=== PATIENT | female | born 1970 | race Caucasian/White ===

== ENCOUNTER 2017-08-16 19:47 | Emergency (ER) | payer SELFPAY ==
[2017-08-16 20:23] LABS: Pregnancy Test - Urine (BHCG) Negative (Negative); Pregu Control Background? CLEAR/WHITE (CLR/WHITE); Pregu Control Bar Appear? YES (CONTROL BAR); Specific Gravity 1.014 (1.002-1.036)
[2017-08-16 20:30] LABS: Amphetamine Not Detected (NotDetected); Cocaine Metabolite Screen Not Detected (NotDetected); Methamphetamine Not Detected (NotDetected); Opiate Screen Not Detected (NotDetected); Phencyclidine (PCP) Not Detected (NotDetected); THC/Cannabinoid Screen Not Detected (NotDetected)
[2017-08-16 20:31] LABS: Barbiturates Screen Not Detected (NotDetected); Benzodiazepine Screen Detected (NotDetected); Medtox Control Line Valid? VALID (VALID); Methadone Not Detected (NotDetected); Oxycodone Screen Not Detected (NotDetected); Tricyclic Screen Not Detected (NotDetected)
[2017-08-16 20:38] LABS: #Basophils 0.2 thou/uL (0.0-0.2); #Eosinphils 0.2 thou/uL (0.0-0.7); #Lymphocytes 3.3 thou/uL (1.20-3.40); #Monocytes 0.9 thou/uL (0.11-0.59); #Neutrophils 6.5 thou/uL (1.40-6.50); %Basophils 1.7 % (0.0-1.0); %Eosinophils 2.2 % (0.0-10.0); %Lymphocytes 29.4 % (21.0-51.0); %Monocytes 8.3 % (0.0-10.0); %Neutrophils 58.5 % (42.0-75.0); Hemoglobin 16.1 g/dL (12.0-16.0); Mean Corpuscular HGB CONC 34.9 g/dL (32.0-36.0); Mean Corpuscular Hemoglobin 30.8 pg (27.0-31.0); Mean Corpuscular Volume 88.4 fl (81.0-99.0); Mean Platelet Volume 6.9 fL (7.4-10.4); Platelet Count 353 thou/uL (130-400); RBC Distribution Width 12.6 % (11.5-14.5); Red Blood Cell (RBC) Count 5.23 mill/uL (4.20-5.40); White Blood Cell (WBC) Count 11.1 thou/uL (4.8-10.8)
[2017-08-16 20:59] LABS: ALT (SGPT) 12 U/L (8-55); AST (SGOT) 22 U/L (5-34); Albumin 4.5 g/dL (3.5-5.0); Alkaline Phosphatase 84 U/L (40-150); Anion Gap 18 mmol/L (10-20); BUN (Urea Nitrogen) 14 mg/dL (7.0-18.7); Bilirubin, Total 0.2 mg/dL (0.2-1.2); Calc. Creatinine Clearance 0 mL/min (70-130); Calcium 9.7 mg/dL (7.8-10.44); Carbon Dioxide 25 mmol/L (22-29); Chloride 102 mmol/L (98-107); Estimated GFR-MDRD 61; Globulin 3.6 g/dL (2.4-3.5); Glucose 76 mg/dL (70-105); Magnesium 2.1 mg/dL (1.6-2.6); Protein, Total 8.1 g/dL (6.0-8.3); Sodium 141 mmol/L (136-145)
--- NOTE | 2017-08-16 21:33 | CT ---
CT OF THE BRAIN WITHOUT CONTRAST 08/16/17 COMPARISON: None. HISTORY: Passed out this morning; syncope. TECHNIQUE: Multiple contiguous axial images were obtained in a CT of the brain without contrast. FINDINGS: The brain is normal in morphology and attenuation without focal lesions or confluent areas of infarct ion. There is no evidence of hydrocephalus, intracranial hemorrhage or extra-axial fluid collection. The calvarium and overlying soft tissues are unremarkable. The visualized paranasal sinuses and masto id air cells are well aerated. IMPRESSION: No evidence of acute intracranial abnormality. POS: [facility]
== END 2017-08-16 21:58 | disposition home or self-care (01) ==
LOC: MADERS 19:47
DX: F41.9 Anxiety disorder, unspecified (principal); M62.838 Other muscle spasm; F17.210 Nicotine dependence, cigarettes, uncomplicated
CPT/HCPCS: 70450; 80053; 80306; 81025; 83735; 84443; 85025; 93005

== ENCOUNTER 2018-08-12 17:50 | Emergency (ER) | payer OTHER, SELFPAY ==
[2018-08-12] MEDS ORDERED: Lorazepam 2 MG/ML VIAL ONE (18:06)
== END 2018-08-12 19:00 | disposition home or self-care (01) ==
LOC: MADERS 17:50
DX: F41.1 Generalized anxiety disorder (principal); F17.210 Nicotine dependence, cigarettes, uncomplicated; Z79.899 Other long term (current) drug therapy
CPT/HCPCS: 96372; J2060

== ENCOUNTER 2018-09-29 08:59 | Emergency (ER) | payer BC, SELFPAY ==
[2018-09-29] MEDS ORDERED: Ibuprofen 600 MG TAB ONE (09:38)
--- NOTE | 2018-09-29 10:16 | RAD ---
4 VIEWS RIGHT WRIST: Date: 09/29/18 COMPARISON: None. HISTORY: Right wrist pain after fall. FINDINGS: 4 views of the right wrist show no evidence of acute fracture or dislocation. Mild soft tissue swelli ng is seen. No degenerative changes are present. IMPRESSION: No evidence of acute osseous abnormality. POS: [facility]
== END 2018-09-29 10:15 | disposition home or self-care (01) ==
LOC: MADERS 08:59
DX: M25.531 Pain in right wrist (principal); F41.9 Anxiety disorder, unspecified; F17.210 Nicotine dependence, cigarettes, uncomplicated; Z79.899 Other long term (current) drug therapy

== ENCOUNTER 2018-10-20 13:20 | Outpatient (CLI) | payer BC ==
--- NOTE | 2018-10-20 13:51 | RAD ---
3 views right hand: 10/20/2018 COMPARISON: None HISTORY: Fall, swelling FINDINGS: No fracture or dislocation. No radiopaque foreign body or subcutaneous gas. IMPRESSION: No acute findings.
--- NOTE | 2018-10-20 13:53 | RAD ---
4 views right wrist: 10/20/2018 COMPARISON: 09/29/2018 HISTORY: Fall, swelling FINDINGS: No displaced fracture or evidence of dislocation is noted. There is mild radiocarpal joint space narrowing. IMPRESSION: No displaced fracture or evidence of dislocation. If symptoms persist, MRI may be benefic ial.
== END 2018-10-20 13:21 | disposition home or self-care (01) ==
LOC: MADRAD 13:20
PROVIDERS: ATTEND Family Medicine
DX: S60.221D Contusion of right hand, subsequent encounter (principal); S60.211D Contusion of right wrist, subsequent encounter

== ENCOUNTER 2019-03-13 19:15 | Emergency (ER) | payer BC ==
[2019-03-13] MEDS ORDERED: Adacel (T-DAP) 0.5 ML SYRINGE ONE (19:30)
[2019-03-13] MEDS ORDERED: Cipro 250 MG TAB ONE (19:39)
[2019-03-13] MEDS ORDERED: HYDROcodone/Acetaminophen 10/325 mg Tablet ONE (19:42)
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
== END 2019-03-13 20:25 | disposition home or self-care (01) ==
LOC: MADERS 19:15
DX: S91.331A Puncture wound without foreign body, right foot, initial encounter (principal); F41.9 Anxiety disorder, unspecified; F17.210 Nicotine dependence, cigarettes, uncomplicated; W45.0XXA Nail entering through skin, initial encounter; Z23 Encounter for immunization
CPT/HCPCS: 90471; 90715

== ENCOUNTER 2019-06-21 15:59 | Emergency (ER) | payer BC, SELFPAY | END 2019-06-21 16:25 | disposition home or self-care (01) | LOC: MADERS 15:59 | DX: F41.1 Generalized anxiety disorder (principal); F43.0 Acute stress reaction; F41.9 Anxiety disorder, unspecified; F17.210 Nicotine dependence, cigarettes, uncomplicated; Z79.899 Other long term (current) drug therapy | CPT/HCPCS: 99283 ==

== ENCOUNTER 2019-06-23 03:24 | Emergency (ER) | payer SELFPAY ==
[2019-06-23 04:03] LABS: #Basophils 0.1 thou/uL (0.0-0.2); #Eosinphils 0.2 thou/uL (0.0-0.7); #Lymphocytes 2.5 thou/uL (1.20-3.40); #Monocytes 0.6 thou/uL (0.11-0.59); #Neutrophils 5.2 thou/uL (1.40-6.50); %Basophils 1.3 % (0.0-1.0); %Eosinophils 2.1 % (0.0-10.0); %Lymphocytes 29.2 % (21.0-51.0); %Monocytes 6.6 % (0.0-10.0); %Neutrophils 60.9 % (42.0-75.0); Hemoglobin 14.8 g/dL (12.0-16.0); Mean Corpuscular HGB CONC 32.1 g/dL (32.0-36.0); Mean Corpuscular Hemoglobin 30.9 pg (27.0-31.0); Mean Corpuscular Volume 96.1 fL (78.0-98.0); Mean Platelet Volume 6.9 fL (7.4-10.4); Platelet Count 324 thou/uL (130-400); RBC Distribution Width 15.2 % (11.5-14.5); White Blood Cell (WBC) Count 8.5 thou/uL (4.8-10.8)
[2019-06-23 04:17] LABS: ALT (SGPT) 15 U/L (8-55); AST (SGOT) 20 U/L (5-34); Acetaminophen Less than 6.0 mcg/mL (10.0-30.0); Albumin 4.6 g/dL (3.5-5.0); Alcohol 102 mg/dL (Less than 10); Alkaline Phosphatase 66 U/L (40-110); Anion Gap 14 mmol/L (10-20); BUN (Urea Nitrogen) 7 mg/dL (7.0-18.7); Bilirubin, Total 0.2 mg/dL (0.2-1.2); Calc. Creatinine Clearance 0 mL/min (70-130); Calcium 9.3 mg/dL (7.8-10.44); Carbon Dioxide 28 mmol/L (22-29); Chloride 104 mmol/L (98-107); Estimated GFR-MDRD 81; Globulin 3.4 g/dL (2.4-3.5); Glucose 88 mg/dL (70-105); Potassium 3.4 mmol/L (3.5-5.1); Salicylate Less than 8.0 mg/dL (15.0-30.0); Sodium 143 mmol/L (136-145)
[2019-06-23] MEDS ORDERED: ALPRAZolam 0.5 MG TAB ONE (06:01)
[2019-06-23 06:12] LABS: Amphetamine Not Detected (NotDetected); Barbiturates Screen Not Detected (NotDetected); Benzodiazepine Screen Detected (NotDetected); Cocaine Metabolite Screen Not Detected (NotDetected); Medtox Control Line Valid? VALID (VALID); Methadone Not Detected (NotDetected); Methamphetamine Not Detected (NotDetected); Opiate Screen Not Detected (NotDetected); Oxycodone Screen Not Detected (NotDetected); Phencyclidine (PCP) Not Detected (NotDetected); THC/Cannabinoid Screen Not Detected (NotDetected); Tricyclic Screen Not Detected (NotDetected)
== END 2019-06-23 12:30 | disposition home or self-care (01) ==
LOC: MADERS 03:24
DX: S20.212A Contusion of left front wall of thorax, initial encounter (principal); F32.9 Major depressive disorder, single episode, unspecified; F10.129 Alcohol abuse with intoxication, unspecified; F41.9 Anxiety disorder, unspecified; I10 Essential (primary) hypertension; F17.210 Nicotine dependence, cigarettes, uncomplicated; Z79.899 Other long term (current) drug therapy; Y04.0XXA Assault by unarmed brawl or fight, initial encounter
CPT/HCPCS: 80053; 80306; 80307; 84443; 85025; 99285

== ENCOUNTER 2020-05-29 10:53 | Emergency (ER) | payer SELFPAY | END 2020-05-29 12:04 | disposition home or self-care (01) | LOC: MADERS 10:53 | DX: S63.502A Unspecified sprain of left wrist, initial encounter (principal); F17.210 Nicotine dependence, cigarettes, uncomplicated; W01.0XXA Fall on same level from slipping, tripping and stumbling without subsequent striking against object, initial encounter ==

== ENCOUNTER 2020-06-19 17:11 | Emergency (ER) | payer SELFPAY | END 2020-06-19 17:47 | disposition home or self-care (01) | LOC: MADERS 17:11 | DX: R22.31 Localized swelling, mass and lump, right upper limb (principal); F17.210 Nicotine dependence, cigarettes, uncomplicated | CPT/HCPCS: 99282 ==

== ENCOUNTER 2020-10-23 12:35 | Emergency (ER) | payer SELFPAY ==
[2020-10-23] MEDS ORDERED: Acetaminophen 325 MG TAB ONE (13:33)
[2020-10-23 13:39] LABS: Bilirubin Small (Negative); Blood, Urine Large (Negative); Clarity Clear (Clear); Glucose, Urine (Dipstick) Negative (Negative); Ketone, Urine Negative (Negative); Leukocyte Negative (Negative); Nitrite Negative (Negative); Protein, Urine (Dipstick) 30 mg/dL (Neg-Trace)
[2020-10-23 13:41] LABS: Specific Gravity, Urine 1.021 (1.002-1.036)
[2020-10-23 13:59] LABS: Bacteria/HPF Rare-Few HPF (None Seen); Squamous Epithelial 0-3 HPF (0-3); WBC/HPF 0-3 HPF (0-3)
[2020-10-24 12:09] LABS: SARS-CoV-2 PCR by NAA Not Detected (NotDetected)
== END 2020-10-23 14:33 | disposition home or self-care (01) ==
LOC: MADERS 12:35
DX: R51.9 Headache, unspecified (principal); R11.0 Nausea; R43.8 Other disturbances of smell and taste; Z20.822 Contact with and (suspected) exposure to COVID-19; F17.210 Nicotine dependence, cigarettes, uncomplicated; Z79.899 Other long term (current) drug therapy
CPT/HCPCS: 81003; 81015; 99284; U0003; U0005

== ENCOUNTER 2021-05-16 08:24 | Emergency (ER) | payer SELFPAY ==
[2021-05-16] MEDS ORDERED: Promethazine 25 MG TAB ONE (08:57)
[2021-05-16 09:08] LABS: Bilirubin Negative (Negative); Blood, Urine Moderate (Negative); Glucose, Urine (Dipstick) Negative (Negative); Ketone, Urine Negative (Negative); Leukocyte Negative (Negative); Nitrite Negative (Negative); Protein, Urine (Dipstick) Trace mg/dL (Neg-Trace); Specific Gravity, Urine 1.015 (1.005-1.030); Urobilinogen 0.2 mg/dL (Less than 2)
[2021-05-16 09:09] LABS: Pregnancy Test - Urine (BHCG) Negative (Negative); Specific Gravity 1.015 (1.002-1.036)
[2021-05-16 09:10] LABS: Clarity Hazy (Clear); Pregu Control Background? CLEAR/WHITE (CLR/WHITE); Pregu Control Bar Appear? YES (CONTROL BAR)
[2021-05-16 09:15] LABS: Bacteria/HPF Rare-Few HPF (None Seen); Mucous/LPF 2+ LPF (<2+); WBC/HPF 0-3 HPF (0-3)
== END 2021-05-16 08:45 | disposition home or self-care (01) ==
LOC: MADERS 08:24
DX: R11.0 Nausea (principal); R31.29 Other microscopic hematuria; F41.0 Panic disorder [episodic paroxysmal anxiety]; F17.210 Nicotine dependence, cigarettes, uncomplicated; F41.9 Anxiety disorder, unspecified; F32.9 Major depressive disorder, single episode, unspecified; Z79.899 Other long term (current) drug therapy
CPT/HCPCS: 81003; 81015; 81025; 99283; Q0169